=== PATIENT | male | born 1960 | race Caucasian/White ===

== ENCOUNTER → 2021-01-16 12:45 | Outpatient (BNVA) | payer OTHER, BC, SELFPAY | PROVIDERS: Family Provider Family Medicine; PCP Family Medicine; Referring Provider Family Medicine; Visit Provider Specialist | DX: G56.03 Carpal tunnel syndrome, bilateral upper limbs (principal); G56.21 Lesion of ulnar nerve, right upper limb; G62.89 Other specified polyneuropathies; M19.90 Unspecified osteoarthritis, unspecified site | CPT/HCPCS: 95913 ==

== ENCOUNTER 2021-07-24 15:48 | Outpatient (CLI) | payer OTHER, SELFPAY ==
[2021-07-24 17:59] VITALS: BP 131/78; PULSE 69; RESP 17; TEMP 36.7; O2SAT 96
== END 2021-07-24 15:49 | disposition home or self-care (01) ==
PROVIDERS: PCP Family Medicine; Visit Provider Family Medicine
DX: U07.1 COVID-19 (principal)
CPT/HCPCS: 96372

== ENCOUNTER → 2022-07-22 08:51 | Outpatient (BNVA) | payer OTHER, SELFPAY | PROVIDERS: PCP Family Medicine; Visit Provider Family Medicine | DX: Z00.00 Encounter for general adult medical examination without abnormal findings (principal); E78.5 Hyperlipidemia, unspecified; R35.1 Nocturia; G56.03 Carpal tunnel syndrome, bilateral upper limbs; G62.9 Polyneuropathy, unspecified | CPT/HCPCS: 80053; 80061; 84153 ==

== ENCOUNTER → 2022-08-20 07:05 | Outpatient (BNVA) | payer OTHER, SELFPAY | PROVIDERS: PCP Family Medicine; Referring Provider Family Medicine; Visit Provider Student in an Organized Health Care Education/Training Program | DX: G56.03 Carpal tunnel syndrome, bilateral upper limbs (principal) | CPT/HCPCS: 73110 ==

== ENCOUNTER 2022-09-22 05:39 | Day surgery (SDC) | payer SELFPAY ==
[2022-09-21 08:51] VITALS: BMI 34.2
[2022-09-22] VITALS (15 sets, daily range): BP systolic 138–186; BP diastolic 74–97; PULSE 60–88; RESP 12–18; TEMP 36.3; O2SAT 94–99
[2022-09-22] MEDS: ketorolac 30 mg/mL INJ IVP (06:12)
[2022-09-22] MEDS: acetaminophen 1,000 MG/100 ML PIGGYBACK 400 MG IV (06:12)
[2022-09-22] MEDS: sodium chloride 0.9% 1,000 ML 30 ML IV (06:12)
--- NOTE | 2022-09-22 06:57 | W.PM.OPSFHP ---
Same Day Surgery H&P Indication for Procedure/HPI DATE OF PROCEDURE: September 22, 2022 CHIEF COMPLAINT/INDICATIONFOR SURGICAL PROCEDURE: Right carpal tunnel syndrome PREOP DIAGNOSIS: Right carpal tunnel syndrome PLANNED PROCEDURE: Operation Date: 09/22/22 07:00 Proposed Procedures p Right carpal tunnel [id number](Right) - Stefan Melo DO Patient's been worked up in the outpatient setting findings consistent with a right carpal tunnel syndrome we talked about treatment options for his nonoperative and operative intervention. This has been going on for years and at this point time he is ready to have this addressed. Patient understands risk benefits complication alternatives surgical nonsurgical treatment options. Understands risk of surgery he elects to proceed with surgical intervention for right carpal tunnel release. Medications/Allergies* Home Medications Medication Instructions Recorded Confirmed Type Glucosamine 1 tab PO DAILY 09/21/22 09/21/22 History ibuprofen 200 mg tablet 200 mg PO Q6H PRN Pain 09/21/22 09/21/22 History multivitamin 1 tab PO DAILY 09/21/22 09/21/22 History tumeric 100 mg-micki 150 mg-olive 1 cap PO DAILY 09/21/22 09/21/22 History 50 mg-oreg 150 mg-caprylate capsule vitamin B complex 1 tab PO DAILY 09/21/22 09/21/22 History zolpidem 5 mg tablet 2.5 mg PO .QPM PRN sleep 09/21/22 09/21/22 History Allergies/Adverse Reactions Allergy/AdvReac Type Severity Reaction Status Date / Time No Known Allergies Allergy Verified 08/19/22 12:27 Current Medications: Generic Name Dose Route Start Last Admin Trade Name Freq PRN Reason Stop Dose Admin Sodium Chloride 1,000 mls @ 30 mls/hr 09/22/22 06:00 09/22/22 06:12 Sodium Chloride 0.9% IV 09/23/22 05:59 30 mls/hr .Q24H FABIOLA Administration Pertinent History/Comorbid Conditions* Medical History (Updated 07/22/22 @ 08:39 by Romeo Hernandez MD) Hyperlipidemia Pertinent Exam Findings alert, oriented x 3, operative site marked and procedure specific exam findings Right upper extremity: Examination demonstrates negative Spurling's to the right side negative Tinel's of the right shoulder negative Tinel's at the elbow with normal shoulder elbow and wrist range of motion.? Patient has positive carpal tunnel findings consistent with Tinel's at the wrist positive median nerve compression test at the wrist as well as positive Phalen's to the right wrist.? Patient is able to make a full fist.? He has no thenar or intrinsic atrophy noted with good motor strength. Recommendations Surgery/Procedure today Other Plans: Plan to proceed with right carpal tunnel release surgery today. All questions answered. Coding Level of Care Code Acute Code for Chg Carina
[2022-09-22] MEDS: ceFAZolin 2,000 MG in sodium chloride 0.9% (plus) 50 ML 100 MG IV (07:02)
[2022-09-22] MEDS: lidocaine-epi 1% 20 mL INJ INJECTION (07:34)
--- NOTE | 2022-09-22 08:01 | PM.OP2 ---
Brief Operative Note Date of procedure: 09/22/22 Pre-op diagnosis: Right carpal tunnel syndrome Post-op diagnosis: same Procedure Done: Right carpal tunnel release Surgeon: Stefan Melo Estimated blood loss (mL): 2 Complications: None Post-op Plan: Patient had procedure performed under local. Was taken back to the PACU in stable condition recovering well. Will receive appropriate discharge structure as well as pain medication postoperatively. We will follow-up with me in the office in 2 weeks. Condition: stable Disposition: same day Coding Level of Care Code Acute Code for Leatha Lim
--- NOTE | 2022-09-22 08:01 | PM.PACU ---
PACU note Narrative: Patient taken to PACU in stable condition recovering well. Patient is able to wiggle fingers make a fist. Decreased sensation to the right hand secondary to local anesthetic. Patient already endorses relief to median nerve symptoms and pressure. Fingertips warm well-perfused brisk capillary refill less than 2 seconds. Exam: awake Disposition: discharged
--- NOTE | 2022-09-22 08:01 | PM.OP ---
Operative Report Date of procedure: September 22, 2022 Pre-op diagnosis: Preop Diagnosis Right carpal tunnel syndrome Post-op diagnosis: Same Procedure done: Right carpal tunnel release Surgeon: Stefan Melo DO Estimated blood loss: 2 mL No tourniquet used Complications: None Findings: See operative report narrative Condition: stable Disposition: same day Brief History: Patient been seen and worked up in the outpatient setting and findings consistent with preoperative diagnosis of carpal tunnel syndrome. Patient is exhausted conservative treatment options at this point time he is considering having something done surgically. Patient's had nerve conduction studies consistent with this diagnosis as well as he is exhausted conservative treatment options of bracing and injections. At this point time he has failed conservative treatment his next best option would be a right carpal tunnel release surgery talked about this in detail as far as risk benefits complications alternatives to treatment options. Understanding his risk for surgery he elects to proceed with surgical intervention. All questions answered. Plan for right carpal tunnel release. He does have carpal tunnel syndrome on the left side and would like to have this done in staged fashion. Procedure: Procedure: Patient seen and evaluated in the preoperative holding area.? Consent was reviewed and signed with patient.? Correct extremity was marked.? Patient was seen evaluated by the anesthesia department once cleared for surgery was brought back to the operative suite.? Placement was placed onto the OR table in supine position all bony prominences were well-padded patient properly secured to the bed.? right upper extremity was then placed onto an armboard.? A nonsterile tourniquet was applied to the right upper arm.? Patient requested only local anesthetic.. patient's right upper extremity was then prepped and draped in standard orthopedic fashion.? Final timeout performed.? Patient received appropriate preoperative antibiotics. Under sterile aseptic technique patient received local anesthesia over the preplanned carpal tunnel incision site.? Tourniquet was not insufflated. Local anesthetic was confirmed with patient wide-awake that he had no pain or sensation A standard mini open carpal tunnel incision was made.? Starting distally at Kahn's cardinal line in line with the fourth ray extending proximally distal to the wrist crease centered over the carpal tunnel.? Sharp scalpel incision was made through skin and subcutaneous tissue.? Self-retaining retractor was placed and the palmar fascia was identified.? This was then split longitudinally and direct visualization of the transverse carpal ligament was then made.? I then utilizing scalpel feathered through the transverse carpal ligament until I entered the floor of the transverse carpal tunnel ligament into the carpal tunnel.? Next I switched to dissection scissors and completed my release of the transverse carpal ligament distally with care to protect the recurrent motor branch.? I completely released into the palmar fat and until no entrapment was noted distally.? Care was made to protect the superficial palmar arch during my distal dissection.? Next I then placed a [place] underneath the transverse carpal tunnel ligament to protect the contents of the carpal tunnel and subsequently utilizing dissection scissors under loupe magnification completely released the transverse carpal ligament proximally into the median antebrachial fascia.? Care was made to protect the palmar cutaneous branch by keeping my scissors curved ulnarly.? Once completely released, I then placed my [place] and had appropriate decompression of the carpal tunnel proximally as well as distally.? I then inspected the contents of the carpal tunnel which showed an hourglass shape of the median nerve showing its compression.? No masses were noted.? Tendons appeared healthy.? Wound was then thoroughly irrigated.? Tourniquet deflated.? Hemostasis satisfactory with bipolar electrocautery.? I then closed the incision with interrupted nylon stitches.? Xeroform 4 x 4's and a bulky soft dressing was applied to the right upper extremity.? Patient was then awakened from anesthesia and taken to PACU in stable condition.? Patient tolerated procedure without complications. Disposition: Patient taken to PACU in stable condition recovering well.? Dressing clean dry and intact.? Patient will receive appropriate discharge instructions as well as pain medication postoperatively.? Patient to follow-up with me in the office in 2 weeks.? They understand they may be weightbearing as tolerated to the right hand.? Patient should keep incision clean dry and intact.? Patient understands if any questions or concerns he may contact the office.
--- NOTE | 2022-09-22 14:03 | ANE.PACU2 ---
Inpatient post-anesthesia follow up: Airway intact: Yes Vital signs: Temperature 97.3 F Pulse Rate 74 Respiratory Rate 16 Blood Pressure 141/78 Pulse Oximetry 96 Oxygen Delivery Me thod Room Air Oxygen Flow Rate Fraction of Inspir ed Oxygen Hydration adequate: Yes Nausea and vomiting: No Pain level: 2 Mental status: Baseline
== END 2022-09-22 08:35 | disposition home or self-care (01) ==
PROVIDERS: PCP Family Medicine; Visit Provider Student in an Organized Health Care Education/Training Program
PROC: (CPT 64721; principal; 2022-09-22 07:00)
DX: G56.01 Carpal tunnel syndrome, right upper limb (principal)
CPT/HCPCS: 64721; J0131; J0690; J1100; J1885; J2405; J2704; J2795; J7030

== ENCOUNTER 2022-10-20 05:48 | Day surgery (SDC) | payer SELFPAY ==
[2022-10-19 14:46] VITALS: BMI 32.4
[2022-10-20] VITALS (11 sets, daily range): BP systolic 107–151; BP diastolic 76–90; PULSE 60–70; RESP 16–18; TEMP 36.5–36.6; O2SAT 96–99
[2022-10-20] MEDS: acetaminophen 1,000 MG/100 ML PIGGYBACK 400 MG IV (06:46)
[2022-10-20] MEDS: ketorolac 30 mg/mL INJ IVP (06:46)
[2022-10-20] MEDS: sodium chloride 0.9% 1,000 ML 30 ML IV (06:47)
--- NOTE | 2022-10-20 07:00 | W.PM.OPSUD ---
Surgery/Procedure H&P Update DATE OF PROCEDURE: October 20, 2022 DATE H&P PERFORMED: 10/05/22 CHANGES TO PREVIOUS DOCUMENTATION: none PREOP DIAGNOSIS: Left Carpal tunnel syndrome PRIMARY INDICATION FOR PROCEDURE: Left carpal tunnel syndrome PLANNED PROCEDURE: Operation Date: 10/20/22 07:00 Proposed Procedures p Left carpal tunnel release: [id number],G56.02(Left) - Stefan Melo DO
[2022-10-20] MEDS: ceFAZolin 2,000 MG in sodium chloride 0.9% (plus) 50 ML 100 MG IV (07:04)
[2022-10-20] MEDS: lidocaine-epi 1% 20 mL INJ 5 ML INJECTION (07:22)
--- NOTE | 2022-10-20 10:30 | P.OP_ITS ---
Brief Operative Note Date of procedure: 10/20/22 Pre-op diagnosis: Left carpal tunnel syndrome Post-op diagnosis: same Procedure Done: Left carpal tunnel release Surgeon: Stefan Melo Estimated blood loss (mL): 2 Complications: None Post-op Plan: Patient taken to PACU in stable condition recovering well. Will receive a ppropriate discharge instruction as well as pain medication postoperatively. We will follow-up with me in the office in 2 weeks. Patient understands and agrees with current plan. All questions answered. Condition: stable Disposition: same day Coding Level of Care Code Acute Code for Leatha Lim
--- NOTE | 2022-10-20 10:31 | P.OP_ITS ---
Operative Report Date of procedure: October 20, 2022 Pre-op diagnosis: Preop Diagnosis Left Carpal tunnel syndrome Procedure: Post-op diagnosis: Same Procedure done: Left carpal tunnel release Surgeon: Stefan Melo DO Estimated blood loss: 2 mL Tourniquet: 18 minutes Complications: None Findings: See operative report narrative Condition: stable Disposition: same day Brief History: Patient been seen and worked up in the outpatient setting and findings consistent with preoperative diagnosis of carpal tunnel syndrome.? Patient is exhausted conservative treatment options at this point time he is considering having something done surgically.? Patient's had nerve conduction studies consistent with this diagnosis as well as he is exhausted conservative treatment options of bracing and injections.? At this point time he has failed conservative treatment his next best option would be a left carpal tunnel rele ase surgery talked about this in detail as far as risk benefits complications alternatives to treatment options.? Understanding his risk for surgery he elects to proceed with surgical intervention.? All questions answered.? Plan for left carpal tunnel release.? Patient has had a right carpal tunnel release surgery roughly 1 month ago and is recovering well and satisfied with his results with this. Procedure: Patient seen and evaluated in the preoperative holding area.? Consent was reviewed and signed with patient.? Correct extremity was marked.? Patient was seen evaluated by the anesthesia department once cleared for surgery was brought back to the operative suite.? Placement was placed onto the OR table in supine position all bony prominences were well-padded patient properly secured to the bed.? Left upper extremity was then placed onto an armboard.? A nonsterile tourniquet was applied to the left upper arm.? Patient requested only local anesthetic.. ? patient's left upper extremity was then prepped and draped in standard orthopedic fashion.? Final timeout performed.? Patient received appropriate preoperative antibiotics. Under sterile aseptic technique patient received local anesthesia over the preplanned carpal tunnel incision site.? Local anesthetic was confirmed with patient wide-awake that he had no pain or sensation Esmarch was used exsanguinate the left upper extremity and tourniquet was insufflated to 250 mmHg. A standard mini open carpal tunnel incision was made.? Starting distally at Kahn's cardinal line in line with the fourth ray extending proximally distal to the wrist crease centered over the carpal tunnel.? Sharp scalpel incision was made through skin and subcutaneous tissue.? Self-retaining retractor was placed and the palmar fascia was identified.? This was then split longitudinally and direct visualization of the transverse carpal ligament was then made.? I then utilizing scalpel feathered through the transverse carpal ligament until I ent ered the floor of the transverse carpal tunnel ligament into the carpal tunnel.? Next I switched to dissection scissors and completed my release of the transverse carpal ligament distally with care to protect the recurrent motor branch.? I completely released into the palmar fat and until no entrapment was noted distally.? Care was made to protect the superficial palmar arch during my distal dissection.? Next I then placed a [place] underneath the transverse carpal tunnel ligament to protect the contents of the carpal tunnel and subsequently utilizing dissection scissors under loupe magnification completely released the transverse carpal ligament proximally into the median antebrachial fascia.? Care was made to protect the palmar cutaneous branch by keeping my scissors curved ulnarly.? Once completely released, I then placed my [place] and had appropriate decompression of the carpal tunnel proximally as well as distally.? I then inspected the contents of the carpal tunnel which showed an hourglass shape of the median nerve showing its compression.? No masses were noted.? Tendons appeared healthy.? Wound was then thoroughly irrigated.? Tourniquet deflated.? Hemostasis satisfactory with bipolar electrocautery.? I then closed the incision with interrupted nylon stitches.? Xeroform 4 x 4's and a bulky soft dressing was applied to the left upper extremity.? Patient was then awakened from anesthesia and taken to PACU in stable condition.? Patient tolerated procedure without complications. Disposition: Patient taken to PACU in stable condition recovering well.? Dressing clean dry and intact.? Patient will receive appropriate discharge instructions as well as pain medication postoperatively.? Patient to follow-up with me in the office in 2 weeks.? They understand they may be weightbearing as tolerated to the left hand.? Patient should keep incision clean dry and intact.? Patient understands if any questions or concerns he may contact the office.
--- NOTE | 2022-10-20 10:31 | PM.PACU ---
PACU note Narrative: Patient taken to PACU in stable condition recovering well. Dressing on in place clean dry and intact fingertips warm well-perfused brisk capillary refill less than 2 seconds. Able to wiggle fingers. Has decreased sensation secondary to local block from surgery. Exam: awake Disposition: discharged
--- NOTE | 2022-10-20 14:14 | ANE.PACU2 ---
Inpatient post-anesthesia follow up: Airway intact: Yes Vital signs: Temperature 97.7 F Pulse Rate 64 Respiratory Rate 18 Blood Pressure 128/76 Pulse Oximetry 98 Oxygen Delivery Me thod Room Air Oxygen Flow Rate Fraction of Inspir ed Oxygen Hydration adequate: Yes Nausea and vomiting: No Pain level: 1 Mental status: Baseline
== END 2022-10-20 08:35 | disposition home or self-care (01) ==
PROVIDERS: PCP Family Medicine; Visit Provider Student in an Organized Health Care Education/Training Program
PROC: (CPT 64721; principal; 2022-10-20 07:00)
DX: G56.02 Carpal tunnel syndrome, left upper limb (principal); E78.5 Hyperlipidemia, unspecified
CPT/HCPCS: 64721; J0131; J0690; J1885; J2795; J7030

== ENCOUNTER → 2022-12-17 13:01 | Outpatient (BNVA) | payer OTHER, SELFPAY | PROVIDERS: PCP Family Medicine; Visit Provider Student in an Organized Health Care Education/Training Program | DX: M17.0 Bilateral primary osteoarthritis of knee (principal) | CPT/HCPCS: 73560; 73565 ==

== ENCOUNTER 2022-12-17 15:59 | Outpatient (CLI) | payer SELFPAY | END 2022-12-17 16:00 | disposition home or self-care (01) | LOC: SPT 16:00 | PROVIDERS: PCP Family Medicine; Visit Provider Student in an Organized Health Care Education/Training Program | DX: Z46.89 Encounter for fitting and adjustment of other specified devices (principal); M25.562 Pain in left knee | CPT/HCPCS: 97760; L1812 ==

== ENCOUNTER → 2024-06-27 13:01 | Outpatient (BNVA) | payer OTHER, SELFPAY | PROVIDERS: PCP Family Medicine; Visit Provider Family Medicine | DX: R35.1 Nocturia (principal); E78.5 Hyperlipidemia, unspecified; Z00.00 Encounter for general adult medical examination without abnormal findings; Z23 Encounter for immunization | CPT/HCPCS: 80053; 80061; 84153 ==

== ENCOUNTER → 2025-04-17 09:17 | Outpatient (BNVA) | payer MEDICARE, OTHER, SELFPAY | PROVIDERS: PCP Family Medicine; Visit Provider Student in an Organized Health Care Education/Training Program | DX: M17.0 Bilateral primary osteoarthritis of knee (principal) | CPT/HCPCS: 73560; 73565; 99214 ==

== ENCOUNTER 2025-04-24 13:46 | Outpatient (CLI) | payer MEDICARE, OTHER, SELFPAY ==
--- NOTE | 2025-04-24 14:30 | CT_ITS ---
WS: [id number] CT LEFT knee, noncontrast HISTORY: surgical planning TECHNIQUE: Protocol for [facility] total knee replacement has been obtained. This includes axial imaging through the LEFT hip, LEFT knee and LEFT ankle. DLP: 1049.17 mGy.cm COMPARISON: Radiograph 04/17/2025 LEFT hip: Mild degenerative narrowing of the SI joints. No significant narrowing of the hip joint. No fracture or bone destruction. There are a few sigmoid diverticula. LEFT knee: Tricompartment osteoarthritis. Marginal osteophytes. Large suprapatellar joint effusion. Mild soft tissue edema along the anterior knee. LEFT ankle: Negative. CT/CT knee LT [facility] [id number] IMPRESSION: CT imaging provided for [facility] robotic total knee replacement.
== END 2025-04-24 13:47 | disposition home or self-care (01) ==
LOC: RAD 13:48
PROVIDERS: PCP Family Medicine; Visit Provider Student in an Organized Health Care Education/Training Program
DX: M17.12 Unilateral primary osteoarthritis, left knee (principal); K57.30 Diverticulosis of large intestine without perforation or abscess without bleeding; M25.78 Osteophyte, vertebrae; M25.462 Effusion, left knee
CPT/HCPCS: 73700

== ENCOUNTER 2025-05-21 09:04 | Outpatient (CLI) | payer MEDICARE, OTHER, SELFPAY ==
[2025-05-21 09:44] LABS: Hematocrit 44.9 % (37-53); Hemoglobin 15.30 g/dL (11.27-16.99); Mean Corpuscular HGB Conc 34.1 g/dL (30-55); Mean Corpuscular Hemoglobin 29.4 pg (27-33); Mean Corpuscular Volume 86.3 fl (82-101); Nucleated Red Blood Cells % 0 %; Platelet Count 296 10^3/cmm (157-399); Red Blood Count 5.20 10^6/uL (3.85-5.65); White Blood Count 5.47 10^3/uL (3.29-11.43)
[2025-05-21 10:02] LABS: Alanine Aminotransferase 23 U/L (0-41); Albumin Level 4.3 g/dL (3.5-5.2); Alkaline Phosphatase 110 U/L (40-130); Anion Gap 14.3 (5-19); Aspartate Amino Transferase 15 U/L (0-40); Blood Urea Nitrogen 16 mg/dL (8-23); Calcium 9.1 mg/dL (8.5-10.5); Carbon Dioxide 23 mmol/L (22-29); Chloride 106 mmol/L (98-107); Globulin 2.7 g/dL (1.3-4.6); Glucose 118 mg/dL (65-115); Osmolality Calculated 290 mOsm/kg (285-295); Potassium 4.3 mmol/L (3.5-5.1); Sodium 139 mmol/L (136-145); Total Protein 7.0 g/dL (6.6-8.7)
[2025-05-21 11:42] LABS: Glucose Urine UA Negative (Normal); Nitrate Urine Negative (Negative); Specific Gravity, Urine 1.010 (1.005-1.030)
[2025-05-21 11:48] LABS: Add Urine Microscopic? YES
== END 2025-05-21 09:05 | disposition home or self-care (01) ==
PROVIDERS: PCP Family Medicine; Visit Provider Student in an Organized Health Care Education/Training Program
DX: Z01.818 Encounter for other preprocedural examination (principal)
CPT/HCPCS: 36415; 80053; 81001; 85025

== ENCOUNTER 2025-06-05 10:41 | Observation (INO) | payer MEDICARE, OTHER, SELFPAY ==
[2025-06-04] VITALS (17 sets, daily range): BP systolic 114–174; BP diastolic 59–81; PULSE 73–88; RESP 16–18; TEMP 36.2–36.9; O2SAT 91–98; BMI 31.4
[2025-06-04] MEDS: acetaminophen 1,000 MG/100 ML PIGGYBACK 400 MG IV ×3 (06:37→22:56)
--- NOTE | 2025-06-04 06:51 | ANES.PREANE2 ---
Pre-Anesthetic Assessment Height/Weight: Height 1.85 m Weight 107.955 kg O2 Del Method Room Air 06/04/25 06:06 Operation Date: 06/04/25 07:00 Proposed Procedures p LEFT Eugene Robot Total Knee Arthroplasty(Left) - Stefan Melo DO Familial anesthetic complications: None Was Beta Nate taken within 24 hours: N/A Was Clonidine taken within 24 hours: N/A Last intake: Intake Last Liquid Date 06/03/25 Last Liquid Time 22:00 Last Solid Date 06/03/25 Last Solid Time 22:00 Social No alcohol and No tobacco Exam alert, oriented x 3, clear to auscultation bilaterally and regular rate & rhythm Airway Mallampati: Class III Dentition: full Anesthetic Plan ASA status: 3 Anesthesia: Regional (specify below) Risk of > 500 ml blood loss (7ml/kg in children): No Medications/Allergies Home Medications ?Medication ?Instructions ?Recorded ?Confirmed ?Last Taken ?Type ibuprofen 200 mg tablet 200 mg PO Q6H PRN Pain 09/21/22 05/31/25 05/24/25 History multivitamin 1 tab PO DAILY 09/21/22 05/31/25 05/24/25 History vitamin B complex 1 tab PO DAILY 09/21/22 05/31/25 05/24/25 History Hinged Knee Brace #1 ea 12/17/22 05/18/23 Unknown Rx Chair Post Machine Operator Brace #1 ea 12/17/22 05/18/23 Unknown Rx Allergies Allergy/AdvReac Type Severity Reaction Status Date / Time No Known Allergies Allergy Verified 04/17/25 09:29 Current Medications Generic Name Dose Route Start Last Admin Trade Name Freq PRN Reason Stop Dose Admin Sodium Chloride 1,000 mls @ 30 mls/hr 06/04/25 06:30 06/04/25 06:36 Sodium Chloride 0.9% IV 06/05/25 06:29 30 mls/hr .Q24H FABIOLA Administration PFSH Anesthesia Medical History Hyperlipidemia Social History Smoking and tobacco/nicotine status: former use of tobacco/nicotine (quit MANY years ago) Alcohol intake: current Alcohol intake frequency: few times a month Anesthesia Procedures Nerve Block Nerve Block 1: Main Anesthesia: spinal anesthesia block Time Out Performed: Yes Consent: requested by attending/covering physician, from patient, from other, risks and benefits reviewed and patient agrees to proceed Nerve block location: adductor canal (L) Anesthesia monitors applied: pulse oximetry, EKG, BP cuff and oxygen Nerve block position: supine Anesthetic Used: ropivicaine 0.5% (30 ml) and with decadron (4 mg) Ultrasound used to: recognize landmarks and visualize and ID femerol nerve Nerve Stimulator Used?: No Interscalene/Femoral BLK: 4 stimuplex 21 g needle used for position and inplane approach, visualize local anesthetic spread and no vascular puncture identified Injection: neg aspiration of heme Patient Tolerated Procedure: well Complications: none
--- NOTE | 2025-06-04 06:57 | W.PM.OPSFHP ---
Same Day Surgery H&P Indication for Procedure/HPI DATE OF PROCEDURE: June 04, 2025 CHIEF COMPLAINT/INDICATIONFOR SURGICAL PROCEDURE: Left knee DJD PREOP DIAGNOSIS: Left knee DJD PLANNED PROCEDURE: Operation Date: 06/04/25 07:00 Proposed Procedures p LEFT Eugene Robot Total Knee Arthroplasty(Left) - Stefan Melo DO Medications/Allergies* Home Medications ?Medication ?Instructions ?Recorded ?Confirmed ?Type ibuprofen 200 mg tablet 200 mg PO Q6H PRN Pain 09/21/22 05/31/25 History multivitamin 1 tab PO DAILY 09/21/22 05/31/25 History vitamin B complex 1 tab PO DAILY 09/21/22 05/31/25 History Allergies/Adverse Reactions Allergy/AdvReac Type Severity Reaction Status Date / Time No Known Allergies Allergy Verified 04/17/25 09:29 Current Medications: Generic Name Dose Route Start Last Admin Trade Name Freq PRN Reason Stop Dose Admin Sodium Chloride 1,000 mls @ 30 mls/hr 06/04/25 06:30 06/04/25 06:36 Sodium Chloride 0.9% IV 06/05/25 06:29 30 mls/hr .Q24H FABIOLA Administration Pertinent History/Comorbid Conditions* Medical History (Updated 12/17/22 @ 14:33 by Stefan Melo DO) Hyperlipidemia Social History Smoking and tobacco/nicotine status: former use of tobacco/nicotine (quit MANY years ago) Alcohol intake: current Alcohol intake frequency: few times a month Pertinent Exam Findings alert, oriented x 3, operative site marked and procedure specific exam findings Please refer to heart and lung findings per the anesthesia note day of surgery Please refer to detailed orthopedic examination on 04/17/2025 listed below: Examination of the left knee: Patient has full knee range of motion 0 to greater than 120 degrees. Mild palpable joint effusion. No pain with hip range of motion. He has severe tenderness palpation over the medial joint line he has roughly 10 degree varus malalignment noted. Stable to varus valgus stress is varus malalignment is correctable on examination. Stable Avelino's crepitus on patellar range of motion as well as positive patellar grind. Mild lateral joint line tenderness to palpation. Gross motor and sensory intact. Recommendations Risks and benefits of procedure reviewed and Patient/family agree to proceed Surgery/Procedure today Other Plans: Plan to proceed to the OR today for a left total knee arthroplasty?Eugene robotic assisted. Patient understands the ins and outs of procedure the risk benefits complication alternatives with surgical nonsurgical treatment options. Understanding risk of surgery patient like to proceed with surgical invention. All questions been answered at this time. Patient's had no injections the past 90 days no change in overall health since last office visit he is ready to proceed with surgical intervention today is cleared the preoperative clearance process. Patient understands and agrees with current plan. All questions answered. Coding Level of Care Code Acute Code for Leatha Lim
[2025-06-04] MEDS: ceFAZolin 2,000 MG in sodium chloride 0.9% (plus) 50 ML 100 MG IV ×3 (07:07→23:14)
[2025-06-04 07:12] LABS: Hematocrit 45.1 % (37-53); Hemoglobin 15.20 g/dL (11.27-16.99); Mean Corpuscular HGB Conc 33.7 g/dL (30-55); Mean Corpuscular Hemoglobin 29.2 pg (27-33); Mean Corpuscular Volume 86.6 fl (82-101); Nucleated Red Blood Cells % 0 %; Platelet Count 253 10^3/cmm (157-399); Red Blood Count 5.21 10^6/uL (3.85-5.65); White Blood Count 5.81 10^3/uL (3.29-11.43)
[2025-06-04] MEDS: tranexamic acid 1,000 mg/10mL SDV 1000 MG IV (07:28)
[2025-06-04 07:43] LABS: Anion Gap 13.3 (5-19); Blood Urea Nitrogen 20 mg/dL (8-23); Calcium 9.1 mg/dL (8.5-10.5); Carbon Dioxide 24 mmol/L (22-29); Chloride 106 mmol/L (98-107); Glucose 122 mg/dL (65-115); Osmolality Calculated 292 mOsm/kg (285-295); Potassium 4.3 mmol/L (3.5-5.1); Sodium 139 mmol/L (136-145)
[2025-06-04] MEDS: ROPivacaine 0.2% Premix 100 mL 200 MG INTRA-ARTI (08:12)
[2025-06-04] MEDS: tranexamic acid 1,000 mg/10mL SDV 1000 MG XX (08:12)
--- NOTE | 2025-06-04 09:13 | PM.OP ---
Operative Report Date of procedure: June 04, 2025 Surgeon: Stefan Melo DO Culinary Internship: Sameer Melo PA-C: PA was necessary for assistance in this case with leg positioning retraction and protection of neurovascular structures as well as assistance in implantation wound closure and dressing application. Procedure: Preoperative diagnosis: Left knee degenerative joint disease Post-op diagnosis: Same Procedure done: Left total knee arthroplasty, cemented?robotic assisted Eugene Implants: Comfort triathlon size 7 femur CR cemented?left Comfort triathlon size?6 tibia universal baseplate cemented Comfort triathlon symmetric patella size 36 mm Chante triathlon polyethylene 10mm Surgeon: Stefan Melo DO Estimated blood?loss: 40 mL Tourniquet 65 minutes IV fluids: 1200 mL Urine output: 400 mL Complications: None Condition: stable Disposition: floor Brief History: Patient is a 65-year-old female with with chronic?left knee degenerative joint disease.? Patient has been worked up in the outpatient setting in the orthopedic office at this point time through shared decision making given? [id number] arthritis as well as failed conservative treatment, and pt would?like to proceed with a?left total knee arthroplasty.? Through shared decision making elected to proceed with surgical intervention for?left total knee arthroplasty.? We talked about continued conservative treatment and surgical intervention as far as the risk benefits complications alternatives surgical and nonsurgical treatment options.? At this point time understanding patient risks with surgery he agrees to proceed with surgical intervention.? Once again? risk with surgery include but are not?limited to make it better make it worse blood clot, heart attack, stroke, on the table, infection, injury to nerves or vessels, persistent pain, arthrofibrosis, implant failure.? Understanding these risks patient agrees to proceed with surgical intervention consent was obtained in the preoperative holding area.? All questions answered. Procedure: Patient was seen and evaluated in the preoperative holding area.? Consent was reviewed and signed with patient with plan for?left total knee arthroplasty.? All questions answered.? Correct extremity marked.? Patient seen and evaluated by the anesthesia department and once cleared for surgery was taken back to the operative suite.? Patient was placed into a supine position on the OR table.? All bony prominences were well-padded.? Patient was appropriately secured to the bed.? Patient underwent anesthesia per the anesthesia department.? Patient received anesthesia and? Gomez catheter was placed.? A nonsterile tourniquet was applied to the?left thigh.? At this point in time a final timeout performed.? Patient received appropriate preoperative antibiotics and TXA. Next the?left?lower extremity was then prepped and draped in standard orthopedic fashion. Esmarch tourniquet was used exsanguinate the?left?lower extremity.? Tourniquet was insufflated to 250 mmHg. A standard anterior incision was made over midline of the knee.? Sharp scalpel excision through skin and subcutaneous tissue full-thickness skin flaps were made.? Fascia was elevated off of the extensor retinaculum was stable with medial parapatellar arthrotomy was then made.? The performed standard sequential releases..? Immediately on entry into the joint patient was found to have severe eburnated bone and tricompartmental arthritic changes noted.? With significant osteophyte formation.? Next the the patella was then stuffed and the knee was then flexed.?? Anne Marie was placed superiorly around the anterior aspect of the femur this was freed of synovium and I subsequently then placed by 2 femur pins to establish my femur arrays for the Eugene robot.? These were then placed bicortically and? femur array was then appropriately secured with appropriate visualization.? Next attention was turned towards the tibial rays.? These were then drilled sequentially bicortically in parallel fashion and intraincisional.? I then placed my guide as well as my tibial array on in place.? This was appropriately secured and had excellent visualization with the Eugene robot.? Next the tibial checkpoint as well as femur checkpoint were then placed.? At this point time I then subsequently established my head center as well as my medial?lateral malleoli as well as my checkpoints.? Next utilizing standard Eugene technology I then mapped out the appropriate points and confirmation points around the femur as well as the tibia in standard fashion.? Once this was then done I then removed all osteophytes in preparation for dynamic testing.? All osteophytes were removed as well as I removed the ACL and the PCL was excised due to its significant tearing and degeneration noted.? At this point time the knee was brought into full extension and we performed our standard evaluation of our gap balancing stressing his?ligaments and extension as well as flexion appropriate adjustments were made to have appropriate gap balancing in both flexion and extension.? This plan for final cuts. We are able to correct patient's deformity within ligamentous tolerances. We get a preoperative plan evaluating our implants which was a size 7 femur and a size 6 tibia.? Next we brought in the Eugene robot and sequentially made our femur cuts.? All excess bony cuts were then removed.? Finally we made our tibial cut.? Once this was done a standard PCL retractor was then placed into this position I excised the medial and?lateral meniscus.? The tibial cut was then subsequently removed all excess bony debris was removed.? I then utilized a?lamina tank builder helper and remove the posterior osteophytes.? At this point time sized the tibia and confirmed this was a size 6.? I utilized our blunt probe to establish rotation of tibial implant.? Once this was done I then placed my tibia size 6 trial in appropriate position and then subsequently placed tibial pins to hold this into place and trialed up to a size 10 mm poly as well as a size 7 femur which was appropriately impacted in place knee was then subsequently brought into extension. Trials were then assessed,? this was stable with varus valgus stress in extension as well as had symmetrical translation when brought into flexion demonstrating symmetrical gaps. I had excellent balance gaps in flexion and extension with varus and valgus stresses.? At this point I was satisfied with these implants these were then verified and opened on the back table size 6 tibia, size 7 femur,? size 10 mm polythickness.? We did confirm appropriate gap balancing and stresses as well as alignment utilizing? Eugene and were satisfied with this plan.? ?At this point time with my trials in place I then towel clip the patella everted this made appropriate measurements subsequently utilizing freehand technique performed by patellar resurfacing this was confirmed to be appropriate resection and subsequently sized to be a 36 mm symmetric.? My drill peg guides were then clamped and appropriate position and appropriate position in the patella for appropriate tracking and parallel with the joint.? Pegs were drilled trial implant was placed and the knee was then subsequently ranged and found to have excellent patellar tracking.? Femur pegs were then drilled.? Satisfied with our tibial placement rotation I then utilized the keel punch and prepped the tibia.? At this point time all of our trial implants were removed.? All checkpoints as well as guidepins and arrays were removed and appropriate counts made.? The wound bed? was thoroughly irrigated and dried and prepped for cementation.? Cement was mixed on the back table.? Once cement was ready this was then covered onto the tibia and the tibial baseplate was then impacted and all excess cement was removed.? Next the polyethylene was then impacted into place on the tibial baseplate.? Next cement was placed onto the femur as well as under the femur implants and impacted in to place and all excess cement was extruded and removed.? Knee was taken into full extension? to clear all excess cement was removed.? Warm saline was placed over the joint.? I then towel clip patella and dried for cementation. cemented the patella into place.? This was all clamped and the cement was allowed to cure.? Thorough irrigation performed with pulse?lavage.? I then placed my periarticular injection while the cement was curing.? Once cured the knee was taken through range of motion and had excellent stability and gaps were balanced in flexion and extension.? Tourniquet was then deflated. hemostasis satisfactory with electrocautery.? Next I then subsequently closed the capsule with Ethibond suture as well as a running strata fix suture.? Knee was then taken through range of motion 30 times.? Next the skin was then closed in?layered fashion of running stratifix sutures of deep and subcutenous tissue and skin.? ?Skin closed with piyush incision was covered with Silverlon, with ABDs soft roll and Julio César wrap.? Patient was then awakened from anesthesia and taken to PACU in stable condition. Disposition: Patient taken to PACU in stable condition will be admitted to the floor for pain control PT/OT weight-bear as tolerated?left?lower extremity dressing changes as needed, DVT prophylaxis. Pain control. Patient will receive appropriate postoperative antibiotics. patient will be seen today by the internal medicine team for medical management.? Patient will follow up with the office in 2 weeks.? Patient understands agrees with current plan.? All questions answered.
--- NOTE | 2025-06-04 09:19 | XRR_ITS ---
PROCEDURE INFORMATION: Exam: XR Left Knee Exam date and time: 06/04/2025 10:26 AM Age: 65 years old Clinical indication: Device placement; Joint replacement hardware; Prior surgery; Surgery date: Post-operative (0-2 days); Surgery type: Lt knee; Additional info: Post L tka, do in pacu TECHNIQUE: Imaging protocol: Radiologic exam of the left knee. Views: 1 or 2 views. COMPARISON: CT knee LT [facility] [id number] 04/24/2025 2:06 PM FINDINGS: Bones/joints: The patient is post total knee arthroplasty without evidence for hardware complication. Soft tissues: Postsurgical change includes air in the deep soft tissues and overlying skin staple line. XR/XR knee LT 1-2V [id number] IMPRESSION: Postsurgical change, left knee.
--- NOTE | 2025-06-04 09:45 | ANE.PACU2 ---
Inpatient post-anesthesia follow up: Airway intact: Yes Vital signs: Temperature 97.6 F Pulse Rate 73 Respiratory Rate 16 Blood Pressure 123/70 Pulse Oximetry 91 Oxygen Delivery Me thod Room Air Oxygen Flow Rate Fraction of Inspir ed Oxygen Hydration adequate: Yes Nausea and vomiting: No Pain level: 1 Mental status: Baseline
[2025-06-04] MEDS: oxyCODONE 5 mg IR Tab/Cap PO ×4 (10:57→23:00)
[2025-06-04] MEDS: tranexamic acid 1,000 MG/100 ML PREMIX 600 MG IV (14:01)
[2025-06-04] MEDS: mupirocin oint 22 gm 1 APPLIC NASAL (17:01)
[2025-06-04] MEDS: chlorhexidine gluconate 0.12% Btl 473 mL 30 ML MUCOUS MEM ×2 (17:01→23:58)
[2025-06-04] MEDS: calcium carb-vit d 600mg/400unit 1 Tablet 1 EACH PO (17:01)
--- NOTE | 2025-06-04 18:12 | P.CONIM_ITS ---
Providers/Reason For Consult 2 Consulting Physician/Specialty*: Hospitalist Reason for Consult*: Medical Management Attending Physician: Stefan Melo DO Primary Care Provider: Romeo Hernandez MD History of Present Illness History of Present Illness Giovanni Paulson is a 65 year old male past medical history of osteoarthritis degenerative joint disease and restless leg syndrome. Patient is a non-smoker - quit smoking greater than 20 year ago, rare alcohol use, and denies illicit drug use. Patient is status post left total knee with attending orthopedic surgeon . Patient denies chest pain, shortness of breath, nausea, vomiting, diarrhea, abdominal pain, fever, illness, dark or tarry stools, or syncope. Patient was able to get up and walk post operatively without pain. Patient states that he will have outpatient physical therapy once he is discharged, appointment already scheduled for Wednesday. Discussed with patient about staying ontop of bowel regimen. Hospitalist team is grateful for the opportunity to consult in the medical management of this patient. Review of Systems 2 General: Reports: 10 or more systems reviewed and unremarkable except in HPI and below Medications/Allergies Home Medications ?Medication ?Instructions ?Recorded ?Confirmed ?Last Taken ?Type ibuprofen 200 mg tablet 200 mg PO Q6H PRN Pain 09/2105/31/25 05/24/25 History multivitamin 1 tab PO DAILY 09/21/2205/1305/24/25 History vitamin B complex 1 tab PO DAILY 09/21/2205/1305/24/25 History Hinged Knee Brace #1 ea 12/17/22 05/18/23 Unkn own Rx Speech Lang Path Therapist Brace #1 ea 12/17/22 05/18/23 Unkn own Rx Allergies Allergy/AdvReac Type Severity Reaction Status Date / Time No Known Allergies Allergy Verified 04/17/25 09:29 Current Medications Generic Name Dose Route Start Last Admin Trade Name Freq PRN Reason Stop Dose Admin Calcium Carbonate 1 each 06/04/25 17:00 06/04/25 17:01 Calcium Carb-Vit D 600mg/400unit 1 Tablet PO 1 each BID FABIOLA Administration Chlorhexidine Gluconate 30 ml 06/04/25 11:00 06/04/25 17:01 Chlorhexidine Gluconate 0.12% Btl 473 Ml MUCOUS MEM 30 ml QID FABIOLA Administration Acetaminophen 1,000 mg in 100 mls @ 400 mls/hr 06/04/25 14:30 06/04/25 14:12 Acetaminophen IV 06/05/25 06:44 Infused Q8H FABIOLA Infusion Cefazolin Sodium 2,000 mg/ 50 mls @ 100 mls/hr 06/04/25 15:00 06/04/25 16:10 Sodium Chloride IV 06/05/25 07:29 Infused Q8H FABIOLA Infusion Protocol Lactated Ringer's 1,000 mls @ 100 mls/hr 06/04/25 09:58 06/04/25 10:58 Lactated Ringers IV 100 mls/hr .Q10H FABIOLA Administration Ketorolac Tromethamine 15 mg 06/04/25 09:58 06/04/25 12:58 Ketorolac 30 Mg/Ml Inj IVP 15 mg Q6H PRN Administration MODERATE TO SEVERE PAIN Mupirocin 1 applic 06/04/25 17:00 06/04/25 17:01 Mupirocin Oint 22 Gm NASAL 06/09/25 16:59 1 applic BID FABIOLA Administration Protocol Oxycodone HCl 5 mg 06/04/25 09:58 06/04/25 15:00 Oxycodone 5 Mg Ir Tab/Cap PO 5 mg Q4H PRN Administration MODERATE PAIN Polysaccharide Iron Complex 150 mg 06/04/25 18:00 06/04/25 17:01 Iron Polysaccharide Complex 150 Mg Capsule PO 150 mg BIDWM FABIOLA Administration Senna/Docusate Sodium 2 tab 06/04/25 17:00 06/04/25 17:02 Sennosides-Docusate Tablet PO Not Given BID FABIOLA Tramadol HCl 50 mg 06/04/25 09:58 06/04/25 17:01 Tramadol 50 Mg Tablet PO 50 mg Q4H PRN Administration MILD TO MODERATE PAIN PFSH Acute 2 PFSH: Medical History (Updated 06/04/25 @ 18:40 by Yudith Cifuentes NP) Hyperlipidemia Social History Smoking and tobacco/nicotine status: former use of tobacco/nicotine (quit MANY years ago) Alcohol intake: current Alcohol intake frequency: few times a month Vitals/I&O/Wt Last Vital Signs Temp 98.1 F 06/04/25 16:00 Pulse 84 06/04/25 16:00 Resp 17 06/04/25 16:00 BP 174/72 06/04/25 16:00 Pulse Ox 95 06/04/25 16:00 O2 Del Method Room Air 06/04/25 16:00 06/04/25 06/04/25 06/04/25 06:59 14:59 22:59 Intake Total 100 / 100 1930 / 1930 530 / 2460 Output Total 440 / 440 1000 / 1440 Balance 100 / 100 1490 / 1490 -470 / 1020 Weight last 48 hrs Weight 107.955 kg Physical Exam 2 Const: COMMON NORMALS: no acute distress, patient oriented x3 and well nourished GENERAL APPEARANCE: cooperative, comfortable and well kempt O RIENTATION/CONSCIOUSNESS: Yes awake, Yes oriented to person, Yes oriented to place and Yes oriented to time HENMT: COMMON NORMALS: normocephalic, Normal external nose present and dentition normal HEAD & SCALP: normocephalic NOSE: Normal external nose present Eye: COMMON NORMALS: Equal, round and reactive pupils present PUPIL: Yes Equal, round and reactive pupils present Neck/C-Spine: COMMON NORMALS: no lymphadenopathy and no JVD Resp: COMMON NORMALS: normal respiratory effort Cardio: COMMON NORMALS: no JVD, regular rate, regular rhythm, S1 normal heart sound present and S2 normal heart sound present RATE: regular rate RHYTHM: regular rhythm HEART SOUNDS: S1 normal heart sound present and S2 normal heart sound present GI: COMMON NORMALS: Normal to inspection, nondistended, normoactive bowel sounds present Extremity: COMMON NORMALS: capillary refill normal, no calf tenderness and no pedal edema NARRATIVE EXTREMITY EXAM: Left knee surgical incision covered, left leg wrapped with Julio César bandage did not visualize surgical incision but dressing is without drainage Neuro: COMMON NORMALS: patient oriented x3 SENSORIUM/ORIENTATION: Yes oriented to person, Yes oriented to place and Yes oriented to time Psych: APPEARANCE: Yes well kempt Urinary Catheter Management: Gomez: Cath Placed During This Visit: yes, but has since been removed by the nurse Reason for Continuing Indwelling Catheter: Decision to DC Catheter Date Urinary Catheter Removed: 06/04/25 Time Urinary Catheter Discontinued: 15:00 Data 06/04/25 06:55 06/04/25 06:55 A&P Assessment and plan 1. Left knee DJD: 2. Restless le. Status post total right knee replacement: 4. Hyperlipidemia: Plan: DJD S/p Right Total knee - Status post right total knee 06/04/2025 by attending orthopedic surgeon - Multimodal pain control - PT evaluation and recommendations appreciated - Scheduled outpatient PT to begin Wednesday 06/06 - Bowel regimen to prevent constipation Restless leg - Takes no home medications - Continue supportive care while in the hospital Hyperlipidemia by history - Takes no home medications - Managed outpatient by PCP Insomnia - States Ambien helpful, will follow up outpatient with PCP for prescription VTE PPX: SCD and Eliquis Code Status: Full Code PDMP PDMP Reviewed: Not Reviewed Coding Level of Care Code 88614 Diagnoses Left knee DJD M17.12 Restless leg G25.81 Status post total right knee replacement Z96.651 Hyperlipidemia E78.5
[2025-06-05] VITALS (11 sets, daily range): BP systolic 138–166; BP diastolic 76–82; PULSE 70–77; RESP 16–18; TEMP 36.6–37; O2SAT 94–95
[2025-06-05] MEDS: oxyCODONE 5 mg IR Tab/Cap PO ×5 (03:22→18:49)
[2025-06-05] MEDS: mupirocin oint 22 gm 1 APPLIC NASAL ×2 (05:03→16:46)
[2025-06-05] MEDS: chlorhexidine gluconate 0.12% Btl 473 mL 30 ML MUCOUS MEM ×3 (05:03→16:45)
[2025-06-05] MEDS: multivitamin therapeutic Tablet 1 TAB PO (05:03)
[2025-06-05] MEDS: calcium carb-vit d 600mg/400unit 1 Tablet 1 EACH PO ×2 (05:03→16:45)
[2025-06-05] MEDS: sennosides-docusate Tablet 2 TAB PO ×2 (05:04→16:45)
[2025-06-05 05:34] LABS: Hematocrit 40.8 % (37-53); Hemoglobin 13.30 g/dL (11.27-16.99); Mean Corpuscular HGB Conc 32.6 g/dL (30-55); Mean Corpuscular Hemoglobin 28.7 pg (27-33); Mean Corpuscular Volume 88.1 fl (82-101); Nucleated Red Blood Cells % 0 %; Platelet Count 261 10^3/cmm (157-399); Red Blood Count 4.63 10^6/uL (3.85-5.65); White Blood Count 13.09 10^3/uL (3.29-11.43)
[2025-06-05 05:53] LABS: Anion Gap 13.3 (5-19); Blood Urea Nitrogen 17 mg/dL (8-23); Calcium 8.7 mg/dL (8.5-10.5); Carbon Dioxide 24 mmol/L (22-29); Chloride 106 mmol/L (98-107); Glucose 149 mg/dL (65-115); Osmolality Calculated 292 mOsm/kg (285-295); Potassium 4.3 mmol/L (3.5-5.1); Sodium 139 mmol/L (136-145)
[2025-06-05] MEDS: acetaminophen 1,000 MG/100 ML PIGGYBACK 400 MG IV (06:26)
[2025-06-05] MEDS: ceFAZolin 2,000 MG in sodium chloride 0.9% (plus) 50 ML 100 MG IV (06:44)
[2025-06-05] MEDS: APIXABAN 2.5 MG TABLET PO (07:50)
--- NOTE | 2025-06-05 07:56 | P.PN_ITS ---
Subjective 2 Subjective: Patient seen and examined at bedside on hospital rounds this morning. Patient sitting up at bedside working with physical therapy, states some pain in his left knee but otherwise no new complaints. Vital signs are stable, labs reviewed, WBC 13.09 most likely secondary to surgery, will continue to be monitored outpatient. Patient is advised to follow-up with primary care provider in 1 to 2 days and to keep follow-up appointment and management with orthopedic surgeon . Hospitalist team grateful to be able to consult in the medical management of this patient, signing off today as the patient is stable for discharge. Vitals/I&O/Wt Last Vital Signs Temp 98.1 F 06/05/25 07:47 Pulse 70 06/05/25 07:47 Resp 17 06/05/25 07:47 BP 138/82 06/05/25 07:47 Pulse Ox 95 06/05/25 07:47 O2 Del Method Room Air 06/05/25 07:47 06/04/25 06/05/25 06/05/25 22:59 06:59 14:59 Intake Total 1770 / 3700 1750 / 5450 Output Total 3100 / 3540 1850 / 5390 Balance -1330 / 160 -100 / 60 Weight last 48 hrs Weight 117.14 kg Weight 107.955 kg Physical Exam 2 Const: COMMON NORMALS: no acute distress, patient oriented x3 and well nourished GENERAL APPEARANCE: cooperative, comfortable and well kempt O RIENTATION/CONSCIOUSNESS: Yes awake, Yes oriented to person, Yes oriented to place and Yes oriented to time HENMT: COMMON NORMALS: normocephalic, Normal external nose present and dentition normal HEAD & SCALP: normocephalic NOSE: Normal external nose present Eye: COMMON NORMALS: Equal, round and reactive pupils present PUPIL: Yes Equal, round and reactive pupils present Neck/C-Spine: COMMON NORMALS: no lymphadenopathy and no JVD Resp: COMMON NORMALS: normal respiratory effort Cardio: COMMON NORMALS: no JVD, regular rate, regular rhythm, S1 normal heart sound present and S2 normal heart sound present RATE: regular rate RHYTHM: regular rhythm HEART SOUNDS: S1 normal heart sound present and S2 normal heart sound present GI: COMMON NORMALS: Normal to inspection, nondistended, normoactive bowel sounds present Extremity: COMMON NORMALS: capillary refill normal, no calf tenderness and no pedal edema NARRATIVE EXTREMITY EXAM: Left knee surgical incision covered, left leg wrapped with Julio César bandage did not visualize surgical incision but dressing is without drainage Neuro: COMMON NORMALS: patient oriented x3 SENSORIUM/ORIENTATION: Yes oriented to person, Yes oriented to place and Yes oriented to time Psych: APPEARANCE: Yes well kempt Urinary Catheter Management: Gomez: Cath Placed During This Visit: yes, but has since been removed by the nurse Reason for Continuing Indwelling Catheter: Decision to DC Catheter Date Urinary Catheter Removed: 06/04/25 Time Urinary Catheter Discontinued: 15:00 Data 06/05/25 05:16 06/05/25 05:16 A&P Assessment and plan 1. Left knee DJD: 2. Restless le. Status post total right knee replacement: 4. Hyperlipidemia: Plan: DJD S/p Right Total knee - Status post right total knee 06/04/2025 by attending orthopedic surgeon - Multimodal pain control - PT evaluation and recommendations appreciated, stable to discharge with outpatient PT - Scheduled outpatient PT to begin Wednesday 06/06 - Bowel regimen continues at discharge to prevent constipation Restless leg - Takes no home medications - Continue supportive care while in the hospital Hyperlipidemia by history - Takes no home medications - Managed outpatient by PCP Insomnia - States Ambien helpful, will follow up outpatient with PCP for prescription VTE PPX: SCD and Eliquis Code Status: Full Code PDMP PDMP Reviewed: Not Reviewed Attestations 2 Medical Necessity Statement*: Patient stable for discharge, hospitalist team signed off. Management for attending, orthopedic surgeon. Coding Level of Care Code 24535 Diagnoses Left knee DJD M17.12 Restless leg G25.81 Status post total right knee replacement Z96.651 Hyperlipidemia E78.5
--- NOTE | 2025-06-05 18:04 | PM.DCS ---
Discharge Providers Date of Admission: 06/05/25 10:41 Date of Discharge: June 05, 2025 Attending Provider at Admission: Stefan Melo DO Attending Provider at Discharge: Stefan Melo DO Consults: Hospitalist team Primary Care Provider: Romeo Hernandez MD Diagnoses at Discharge Discharge Diagnosis 1. Status post total left knee replacement: 2. Restless le. Hyperlipidemia: Reason for Visit Reason for Visit: M17.12 Brief History: Status post left total knee arthroplasty?[place] robotic assisted Hospital Course Hospital Course Patient presented to the preoperative holding area with plan for left total knee arthroplasty after patient has been worked up in the outpatient setting for failed conservative treatment of left knee degenerative joint disease. Once cleared by anesthesia for surgery patient subsequently was taken back to the operative suite underwent anesthesia per anesthesia department and then subsequently underwent a left total knee arthroplasty. Procedure was performed without any complications patient was taken to PACU in stable condition patient recovered well in PACU and then was admitted to the floor postoperatively internal medicine was consulted and on board for medical management and assistance with care. Patient received appropriate PT/OT, postoperative antibiotics, postoperative TXA, pain control, postoperative DVT prophylaxis. Elevation and ice. Patient encouraged for knee range of motion allowed weightbearing as tolerated to the operative lower extremity. Dressing was changed as needed, labs were monitored daily. Patient recovered well postoperatively and worked well and progressed well with therapy. It was determined on postoperative day 1 the patient was stable for discharge from an orthopedic standpoint and medicine. Patient was comfortable with discharge and plan was discharged home. Patient received appropriate discharge instructions as well as pain medication and DVT prophylaxis postoperatively. Given appropriate instructions for dressing management. Patient will follow-up with Dr. Melo/orthopedics in the office in 2 weeks. All questions answered. Understand if there is any issues questions or concerns and contact the office. Physical Exam Narrative: Left knee examination: Dressing on in place, clean dry and intact. No evidence of saturation. Patient has normal postoperative swelling and tenderness to palpation to the knee. Compartments are soft compressible,'s calf soft and nontender. Sensations intact to light touch distally. Distal pulses are palpable. Patient is able to wiggle toes as well as plantarflex and dorsiflex ankle. Urinary Catheter Management: Gomez: Cath Placed During This Visit: yes, but has since been removed by the nurse Reason for Continuing Indwelling Catheter: Decision to DC Catheter Date Urinary Catheter Removed: 06/04/25 Time Urinary Catheter Discontinued: 15:00 Discharge Data Studies Completed and Pending Completed Studies During Hospitalization Category Date Time Status XR knee LT 1-2V 06606 Routine Exams 06/04/25 09:19 Completed Pending at discharge Category Date Time Status Basic Metabolic Panel AM LABS Lab 06/06/25 04:00 Ordered Basic Metabolic Panel AM LABS Lab 06/07/25 04:00 Ordered Complete Blood Count w/Auto AM LABS Lab 06/06/25 04:00 Ordered Complete Blood Count w/Auto AM LABS Lab 06/07/25 04:00 Ordered Radiology Impressions Knee X-Ray 06/04/25 09:19 IMPRESSION: Postsurgical change, left knee. Laboratory Results WBC 13.09 10^3/uL (3.29-11.43) H 06/05/25 05:16 RBC 4.63 10^6/uL (3.85-5.65) 06/05/25 05:16 Hgb 13.30 g/dL (11.27-16.99) 06/05/25 05:16 Hct 40.8 % (37-53) 06/05/25 05:16 MCV 88.1 fl (82-101) 06/05/25 05:16 MCH 28.7 pg (27-33) 06/05/25 05:16 MCHC 32.6 g/dL (30-55) 06/05/25 05:16 RDW 12.9 % (12.1-15.1) 06/05/25 05:16 Plt Count 261 10^3/cmm (157-399) 06/05/25 05:16 MPV 9.7 fL (7.4-10.4) 06/05/25 05:16 Neut % (Auto) 73.6 % 06/05/25 05:16 Lymph % (Auto) 16.2 % 06/05/25 05:16 [place] % (Auto) 9.5 % 06/05/25 05:16 Eos % (Auto) 0.2 % 06/05/25 05:16 Baso % (Auto) 0.2 % 06/05/25 05:16 Neut # (Auto) 9.63 10^3/uL (1.8-7.7) H 06/05/25 05:16 Lymph # (Auto) 2.1 10^3/uL (0.8-4.8) 06/05/25 05:16 [place] # (Auto) 1.3 10^3/uL (0.2-0.9) H 06/05/25 05:16 Eos # (Auto) 0.0 10^3/uL (0.0-0.8) 06/05/25 05:16 Baso # (Auto) 0.0 10^3/uL (0.0-0.1) 06/05/25 05:16 Nucleated RBC % (auto) 0 % 06/05/25 05:16 Nucleated RBCs # 0.0 /100WBC 06/05/25 05:16 Sodium 139 mmol/L (136-145) 06/05/25 05:16 Potassium 4.3 mmol/L (3.5-5.1) 06/05/25 05:16 Chloride 106 mmol/L (98-107) 06/05/25 05:16 Carbon Dioxide 24 mmol/L (22-29) 06/05/25 05:16 Anion Gap 13.3 (5-19) 06/05/25 05:16 BUN 17 mg/dL (8-23) 06/05/25 05:16 Creatinine 0.6 mg/dL (0.7-1.2) L 06/05/25 05:16 GFR Calculation 135.2 mL/min (90-130) H 06/05/25 05:16 Glucose 149 mg/dL (65-115) H 06/05/25 05:16 Calculated Osmolality 292 mOsm/kg (285-295) 06/05/25 05:16 Calcium 8.7 mg/dL (8.5-10.5) 06/05/25 05:16 Blood Type A Positive 06/04/25 06:55 Rho(D) Type Rh positive 06/04/25 06:55 Antibody Screen Negative 06/04/25 06:55 Vitals Last Vital Signs Temp 98.3 F 06/05/25 16:00 Pulse 76 06/05/25 16:00 Resp 18 06/05/25 16:00 BP 166/77 06/05/25 16:00 Pulse Ox 94 06/05/25 16:00 O2 Del Method Room Air 06/05/25 16:00 Discharge Plan Discharge Patient Disposition: Home Condition: Stable Prescriptions: New methocarbamol 500 mg tablet 500 mg PO TID PRN (Reason: muscle spasms/pain) 14 Days Qty: 42 0RF cefadroxil 500 mg capsule 500 mg PO BID 7 Days Qty: 14 0RF oxycodone 5 mg tablet 5 mg PO Q6H PRN (Reason: pain postop) 7 Days Qty: 28 0RF Eliquis 2.5 mg tablet 2.5 mg PO BID 14 Days Qty: 28 0RF Continued (DME) 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 Library Media Technician OK for DC: Hospitalist Discharge Order = DC NOW: Discharge Order (Routine); Ordered 06/05/25 Ordered By: Stefan Melo Referrals: [facility] [Outside] - 06/06/25 9:00 am Stefan Melo DO [Physician, Orthopedics] - 06/19/25 2:30 pm Discharge Diet: Regular Discharge Activity: Limit activity as instructed and Use walker/crutches as instructed Patient Instructions: Cefadroxil (By mouth), Methocarbamol (By mouth), Oxycodone, Rapid Release (By mouth), Apixaban (By mouth), Acute Wound Care (DC), Total Knee Replacement (GEN), Post Anesthesia Care Activity Restrictions/Additional Instructions: Orthopedic discharge instructions: Keep incisions clean dry and intact, leave Silverlon bandage dressings on in place for 7 days after that may rinse incisions with warm soapy water pat dry and redress with a dry dressing new Silverlon dressing Patient may weight-bear as tolerate to the operative extremity Utilize walker as needed Encourage knee range of motion Ice and elevate as needed for pain and swelling Take pain medication as prescribed Take antinausea medication as needed Take antibiotic as prescribed for infection prevention Utilize incentive spirometry 10 times every hour Pain medication can cause constipation. take dikb-ibr-pyfiige stool softeners and or MiraLAX. Take prescribed Eliquis twice daily for the next 14 days for blood clot prevention May supplement for pain with Tylenol [id number] as needed(1000 mg every 8 hours-do not exceed more than 3000mg in 24-hour period) No baths or soaks Follow-up in the orthopedic office in 2 weeks Contact the office for any questions or concerns Discharge Attestations Time Spent in Discharge Care*: less than 30 min Quality Metrics Clinical Quality Measures [ No reported AMI, CVA or VTE this stay] Coding Level of Care Code Acute Code for Chg Fwd Diagnoses Status post total left knee replacement Z96.652 Restless leg G25.81 Hyperlipidemia E78.5
== END 2025-06-05 19:19 | disposition home or self-care (01) ==
LOC: OR 06-11 08:42
PROVIDERS: Physician Assistant; Admitting Provider Student in an Organized Health Care Education/Training Program; PCP Family Medicine; Visit Provider Student in an Organized Health Care Education/Training Program
PROC: 8E0Y0CZ Robotic Assisted Procedure of Lower Extremity, Open Approach (ICD-10-PCS; CPT 27447; principal; 2025-06-04 07:00)
DX: M17.12 Unilateral primary osteoarthritis, left knee (principal); E78.5 Hyperlipidemia, unspecified; G25.81 Restless legs syndrome; Z87.891 Personal history of nicotine dependence
CPT/HCPCS: 27447; 20985; 36415; 73560; 80048; 85025; 86850; 86900; 97110; 97116; 97161; 97165; 97530; A4216; C1713; C1776; G0378; J0131; J0169; J0690; J1100; J1885; J2250; J2371; J2405; J2704; J2795; J3010; J3373; J7030; J7120; J9999; L8699; Q0162

== ENCOUNTER → 2025-06-19 14:29 | Outpatient (BNVA) | payer MEDICARE, OTHER, SELFPAY | PROVIDERS: PCP Family Medicine; Visit Provider Physician Assistant | DX: Z98.890 Other specified postprocedural states (principal); Z96.652 Presence of left artificial knee joint | CPT/HCPCS: 73560; 73565; 99024 ==